=== PATIENT | female | born 1980 | race Caucasian/White ===

== ENCOUNTER 2019-02-08 11:37 | Emergency (ER) | payer OTHER ==
[~2019-02-08] VITALS: Ht 162.6 cm; Wt 98.2 kg
[~2019-02-08 11:37] MED LIST: ATOR10TA84 PO; RANI150T7 PO
[2019-02-08] MEDS ORDERED: GEMF600T5 PO (12:11)
[2019-02-08] MEDS ORDERED: VIT D PO (12:11)
[2019-02-08] MEDS ORDERED: METF-960 PO (12:11)
[2019-02-08] MEDS ORDERED: GLYB2.5 PO (12:11)
[2019-02-08 12:16] LABS: GLUCOSE,POINT OF CARE 183 MG/DL (70-110)
[2019-02-08] MEDS ORDERED: KETOROLAC TROMETHAMINE 30 MG/ML VIAL IM ONE (13:30)
[2019-02-08] MEDS ORDERED: BENZONATATE 100 MG CAPSULE PO ONE (13:30)
[2019-02-08] MEDS ORDERED: BENZOCAINE/MENTHOL LOZENGE PO ONE (13:30)
[2019-02-08 15:11] VITALS: BP 126/78
== END 2019-02-08 15:15 | disposition home or self-care (01) ==
LOC: EMS 11:37
DX: J06.9 Acute upper respiratory infection, unspecified (principal); E78.00 Pure hypercholesterolemia, unspecified; K21.9 Gastro-esophageal reflux disease without esophagitis; E11.9 Type 2 diabetes mellitus without complications; F17.210 Nicotine dependence, cigarettes, uncomplicated; Z79.84 Long term (current) use of oral hypoglycemic drugs; Z79.899 Other long term (current) drug therapy
CPT/HCPCS: 82962; 96372; 99283; 99406; J1885